=== PATIENT | male | born 1985 | race Caucasian/White ===

== ENCOUNTER 2018-01-01 14:52 | Inpatient (IN) | payer BC ==
[~2018-01-01] VITALS: Ht 175.3 cm; Wt 85.1 kg
[2018-01-01] MEDS ORDERED: vancomycin inj 1,250 MG in normal saline 250ml IV soln 250 ML IV SCH (15:00)
[2018-01-01] MEDS: vancomycin inj 1,250 MG in normal saline 250ml IV soln 250 ML IV SCH (17:00)
[2018-01-01 17:02] LABS: BASOPHILS # (AUTO) 0.1 X10'3 (0-0.2); BASOPHILS % (AUTO) 0.7 % (0-1); EOSINOPHILS # (AUTO) 0.4 X10'3 (0-0.9); EOSINOPHILS % (AUTO) 4.9 % (0-6); HEMATOCRIT 44.9 % (42.0-52.0); HEMOGLOBIN 15.8 g/dl (14.0-17.9); LYMPHOCYTES # (AUTO) 2.5 X10'3 (1.1-4.8); LYMPHOCYTES % (AUTO) 29.2 % (21-51); MEAN CORPUSCULAR HEMOGLOBIN 32.9 PG (27.0-31.0); MEAN CORPUSCULAR HGB CONC 35.1 % (33.0-36.5); MEAN CORPUSCULAR VOLUME 93.5 FL (78-98); MEAN PLATELET VOLUME 7.3 FL (7.4-10.4); MONOCYTES # (AUTO) 0.8 X10'3 (0-0.9); MONOCYTES % (AUTO) 9.6 % (2-12); NEUTROPHILS # (AUTO) 4.7 X10'3 (1.8-7.7); NEUTROPHILS % (AUTO) 55.6 % (42-75); PLATELET COUNT 341 X10'3 (140-440); RED CELL DISTRIBUTION WIDTH 12.1 % (11.5-14.5); WHITE BLOOD COUNT 8.5 X10'3 (4.5-11.0)
[2018-01-01] MEDS ORDERED: CEPH250T PO (17:04)
[2018-01-01] MEDS ORDERED: ADAL40PE SUBCUT (17:04)
[2018-01-01] MEDS ORDERED: SULF1TAB49 PO (17:04)
[2018-01-01] MEDS ORDERED: CefTRIAXone 2gm/NS 100ml IVPB 100 ML IV ONE (17:10)
[2018-01-01] MEDS ORDERED: potassium Cl 20 mEq SR tablet PO PRN ×2 (17:15)
[2018-01-01] MEDS ORDERED: ondansetron/PF 4mg/2ml inj IV PRN (17:15)
[2018-01-01] MEDS ORDERED: HYDROcodone/acetaminophen 5mg/325mg tablet PO PRN (17:15)
[2018-01-01] MEDS ORDERED: mag hydrox/Alum hydrox/simeth 30ml oral suspension PO PRN (17:15)
[2018-01-01] MEDS: K and/or MAG REPLACEMENT MC SCH (17:15)
[2018-01-01] MEDS ORDERED: magnesium Cl slow-release 64mg tablet PO PRN (17:15)
[2018-01-01] MEDS ORDERED: potassium Cl 40MEQ/NS 500ml 500 ML IV PRN ×2 (17:15)
[2018-01-01] MEDS ORDERED: magnesium 4gm in 100ml NS 100 ML IV PRN (17:15)
[2018-01-01] MEDS ORDERED: magnesium 2GM in 50ml NS 50 ML IV PRN (17:15)
[2018-01-01] MEDS ORDERED: acetaminophen 325mg tablet PO PRN ×2 (17:15)
[2018-01-01] MEDS ORDERED: magnesium hydroxide 30ml (MOM) UD suspension PO PRN (17:15)
[2018-01-01 17:17] LABS: ALANINE AMINOTRANSFERASE 61 U/L (12-78); ALBUMIN 3.6 G/DL (3.4-5.0); ALKALINE PHOSPHATASE 72 IU/L (46-116); ANION GAP 12 (8-16); ASPARTATE AMINO TRANSFERASE 24 U/L (10-37); BILIRUBIN,TOTAL 0.3 MG/DL (0.1-1.0); BLOOD UREA NITROGEN 14 MG/DL (7-18); BUN/CREATININE RATIO 11.4 (5.4-32.0); CALCIUM 8.7 MG/DL (8.5-10.1); CHLORIDE 106 MMOL/L (99-107); CREATININE 1.23 MG/DL (0.60-1.10); GLUCOSE 97 MG/DL (70-104); POTASSIUM 4.1 MMOL/L (3.5-5.1); SODIUM 141 MMOL/L (135-145); TOTAL CARBON DIOXIDE 23.2 MMOL/L (24-32); TOTAL PROTEIN 7.3 G/DL (6.4-8.2); eGFR 68 ML/MIN
[2018-01-01 18:14] LABS: INR 0.9 INR; PARTIAL THROMBOPLASTIN TIME 26 SECONDS (22-32); PROTHROMBIN TIME 9.3 SECONDS (9.0-12.0)
[2018-01-01] MEDS ORDERED: normal saline 1000ML IV soln IVB ONE (18:35)
[2018-01-01] MEDS ORDERED: iohexol 300mg/ml 100ml inj. ONE (18:39)
[2018-01-01] MEDS ORDERED: famotidine/PF 10 mg/ml inj IV ONE (20:10)
[2018-01-01] MEDS ORDERED: diphenhydrAMINE 50 mg/ml inj IV ONE (20:10)
[2018-01-01] MEDS: HYDROcodone/acetaminophen 10/325mg tab PO PRN (20:29)
[2018-01-02] MEDS: HYDROcodone/acetaminophen 10/325mg tab PO PRN ×5 (00:51→22:37)
[2018-01-02] MEDS: temazepam 15mg capsule PO PRN ×2 (00:51→22:37)
[2018-01-02] MEDS: piperacillin/tazo 3.375gm/50ml 50 ML IV SCH ×3 (00:52→19:03)
[2018-01-02] MEDS: vancomycin inj 1,250 MG in normal saline 250ml IV soln 250 ML IV SCH (01:00)
[2018-01-02] MEDS: diphenhydrAMINE 50 mg/ml inj IV PRN ×3 (04:43→20:14)
[2018-01-02 06:43] LABS: BASOPHILS # (AUTO) 0.1 X10'3 (0-0.2); BASOPHILS % (AUTO) 0.8 % (0-1); EOSINOPHILS # (AUTO) 0.5 X10'3 (0-0.9); EOSINOPHILS % (AUTO) 6.6 % (0-6); HEMATOCRIT 39.3 % (42.0-52.0); HEMOGLOBIN 13.8 g/dl (14.0-17.9); LYMPHOCYTES # (AUTO) 2.5 X10'3 (1.1-4.8); LYMPHOCYTES % (AUTO) 34.3 % (21-51); MEAN CORPUSCULAR HEMOGLOBIN 33.4 PG (27.0-31.0); MEAN CORPUSCULAR HGB CONC 35.2 % (33.0-36.5); MEAN CORPUSCULAR VOLUME 94.9 FL (78-98); MEAN PLATELET VOLUME 7.3 FL (7.4-10.4); MONOCYTES # (AUTO) 0.8 X10'3 (0-0.9); NEUTROPHILS # (AUTO) 3.4 X10'3 (1.8-7.7); NEUTROPHILS % (AUTO) 47.3 % (42-75); PLATELET COUNT 279 X10'3 (140-440); RED BLOOD COUNT 4.14 X10'6 (4.70-6.10); RED CELL DISTRIBUTION WIDTH 12.2 % (11.5-14.5); WHITE BLOOD COUNT 7.2 X10'3 (4.5-11.0)
[2018-01-02 06:55] LABS: ANION GAP 10 (8-16); BLOOD UREA NITROGEN 14 MG/DL (7-18); BUN/CREATININE RATIO 11.7 (5.4-32.0); CALCIUM 8.3 MG/DL (8.5-10.1); CHLORIDE 107 MMOL/L (99-107); GLUCOSE 85 MG/DL (70-104); MAGNESIUM 1.9 MG/DL (1.5-2.4); POTASSIUM 4.1 MMOL/L (3.5-5.1); SODIUM 141 MMOL/L (135-145); TOTAL CARBON DIOXIDE 24.1 MMOL/L (24-32); eGFR 70 ML/MIN
[2018-01-02] MEDS ORDERED: OMEP20TA23 PO (07:49)
[2018-01-02] MEDS: K and/or MAG REPLACEMENT MC SCH (08:00)
[2018-01-02] MEDS ORDERED: OMEP20CA10 PO (08:32)
[2018-01-02] MEDS ORDERED: pantoprazole 40mg Tablet.DR PO SCH (08:45)
[2018-01-02] MEDS ORDERED: methylPREDNISolone sod succ 125mg/2ml vial IV ONE (10:35)
[2018-01-02] MEDS: famotidine 20mg tablet PO SCH ×2 (11:02→19:05)
[2018-01-02] MEDS: ketorolac tromethamine 15mg/ml inj. IV PRN ×2 (11:47→19:04)
[2018-01-02] MEDS: methylPREDNISolone sod succ 125mg/2ml vial IV SCH ×2 (14:31→19:04)
[2018-01-02 16:45] VITALS: BP 143/85
[2018-01-02 19:00] VITALS: BP 135/91
[2018-01-02] MEDS: LORazepam 1 MG tablet PO PRN (19:05)
[2018-01-02] MEDS ORDERED: NABU750T2 PO (22:54)
[2018-01-03] VITALS: BP 126/79
[2018-01-03] MEDS: methylPREDNISolone sod succ 125mg/2ml vial IV SCH ×4 (01:01→14:18)
[2018-01-03] MEDS: piperacillin/tazo 3.375gm/50ml 50 ML IV SCH ×4 (01:06→23:45)
[2018-01-03] MEDS: diphenhydrAMINE 50 mg/ml inj IV PRN ×2 (02:26→08:57)
[2018-01-03] MEDS: ketorolac tromethamine 15mg/ml inj. IV PRN ×3 (02:38→22:31)
[2018-01-03] MEDS: HYDROcodone/acetaminophen 10/325mg tab PO PRN ×4 (04:06→22:31)
[2018-01-03 07:00] VITALS: BP 133/83
[2018-01-03] MEDS: famotidine 20mg tablet PO SCH ×2 (07:26→19:51)
[2018-01-03] MEDS: OMEPRAZOLE 20MG PO SCH (07:26)
[2018-01-03 07:38] LABS: BASOPHILS % (AUTO) 0.3 % (0-1); EOSINOPHILS % (AUTO) 0 % (0-6); HEMATOCRIT 41.5 % (42.0-52.0); HEMOGLOBIN 14.6 g/dl (14.0-17.9); LYMPHOCYTES # (AUTO) 1.4 X10'3 (1.1-4.8); LYMPHOCYTES % (AUTO) 9.5 % (21-51); MEAN CORPUSCULAR HEMOGLOBIN 33.1 PG (27.0-31.0); MEAN CORPUSCULAR HGB CONC 35.2 % (33.0-36.5); MEAN CORPUSCULAR VOLUME 94.1 FL (78-98); MEAN PLATELET VOLUME 7.8 FL (7.4-10.4); MONOCYTES # (AUTO) 0.2 X10'3 (0-0.9); MONOCYTES % (AUTO) 1.4 % (2-12); NEUTROPHILS # (AUTO) 13.4 X10'3 (1.8-7.7); NEUTROPHILS % (AUTO) 88.8 % (42-75); PLATELET COUNT 340 X10'3 (140-440); RED BLOOD COUNT 4.41 X10'6 (4.70-6.10); WHITE BLOOD COUNT 15.1 X10'3 (4.5-11.0)
[2018-01-03] MEDS: K and/or MAG REPLACEMENT MC SCH (07:47)
[2018-01-03 07:53] LABS: ALBUMIN 3.3 G/DL (3.4-5.0); ANION GAP 12 (8-16); BLOOD UREA NITROGEN 14 MG/DL (7-18); BUN/CREATININE RATIO 15.7 (5.4-32.0); CHLORIDE 105 MMOL/L (99-107); CREATININE 0.89 MG/DL (0.60-1.10); GLUCOSE 144 MG/DL (70-104); MAGNESIUM 2.2 MG/DL (1.5-2.4); POTASSIUM 4.4 MMOL/L (3.5-5.1); SODIUM 141 MMOL/L (135-145); TOTAL CARBON DIOXIDE 23.9 MMOL/L (24-32); eGFR > 90 ML/MIN
[2018-01-03] MEDS: LORazepam 1 MG tablet PO PRN ×3 (07:57→19:51)
[2018-01-03 11:45] VITALS: BP 142/80
[2018-01-03 18:30] VITALS: BP 150/98
[2018-01-03] MEDS: methylPREDNISolone sod succ/PF 40mg inj. IV SCH (19:51)
[2018-01-03] MEDS: lactobacillus rhamnosus 10,000 MMU CELLS/CAPSULE PO SCH (19:51)
[2018-01-03 23:57] VITALS: BP 155/102
[2018-01-04] MEDS: methylPREDNISolone sod succ/PF 40mg inj. IV SCH ×2 (02:32→08:00)
[2018-01-04] MEDS: LORazepam 1 MG tablet PO PRN (02:32)
[2018-01-04 06:29] LABS: BASOPHILS % (AUTO) 0.2 % (0-1); EOSINOPHILS # (AUTO) 0.2 X10'3 (0-0.9); EOSINOPHILS % (AUTO) 1.1 % (0-6); HEMATOCRIT 37.9 % (42.0-52.0); HEMOGLOBIN 13.6 g/dl (14.0-17.9); LYMPHOCYTES # (AUTO) 1.9 X10'3 (1.1-4.8); LYMPHOCYTES % (AUTO) 9.9 % (21-51); MEAN CORPUSCULAR HEMOGLOBIN 33.7 PG (27.0-31.0); MEAN CORPUSCULAR HGB CONC 35.9 % (33.0-36.5); MEAN CORPUSCULAR VOLUME 93.8 FL (78-98); MEAN PLATELET VOLUME 7.2 FL (7.4-10.4); MONOCYTES # (AUTO) 1.1 X10'3 (0-0.9); MONOCYTES % (AUTO) 6.1 % (2-12); NEUTROPHILS # (AUTO) 15.4 X10'3 (1.8-7.7); NEUTROPHILS % (AUTO) 82.7 % (42-75); PLATELET COUNT 339 X10'3 (140-440); RED BLOOD COUNT 4.04 X10'6 (4.70-6.10); RED CELL DISTRIBUTION WIDTH 12.5 % (11.5-14.5); WHITE BLOOD COUNT 18.7 X10'3 (4.5-11.0)
[2018-01-04 07:00] VITALS: BP 137/90
[2018-01-04 07:01] LABS: ALBUMIN 3.3 G/DL (3.4-5.0); ANION GAP 10 (8-16); BLOOD UREA NITROGEN 17 MG/DL (7-18); BUN/CREATININE RATIO 17.2 (5.4-32.0); CALCIUM 8.7 MG/DL (8.5-10.1); CHLORIDE 106 MMOL/L (99-107); CREATININE 0.99 MG/DL (0.60-1.10); GLUCOSE 127 MG/DL (70-104); MAGNESIUM 2.4 MG/DL (1.5-2.4); POTASSIUM 4.4 MMOL/L (3.5-5.1); SODIUM 141 MMOL/L (135-145); TOTAL CARBON DIOXIDE 24.8 MMOL/L (24-32); eGFR 87 ML/MIN
[2018-01-04] MEDS: lactobacillus rhamnosus 10,000 MMU CELLS/CAPSULE PO SCH (07:19)
[2018-01-04] MEDS: HYDROcodone/acetaminophen 10/325mg tab PO PRN (07:20)
[2018-01-04] MEDS: OMEPRAZOLE 20MG PO SCH (07:20)
[2018-01-04] MEDS: ketorolac tromethamine 15mg/ml inj. IV PRN (07:20)
[2018-01-04] MEDS: piperacillin/tazo 3.375gm/50ml 50 ML IV SCH (08:00)
[2018-01-04] MEDS: K and/or MAG REPLACEMENT MC SCH (08:00)
[2018-01-04] MEDS: famotidine 20mg tablet PO SCH (08:00)
== END 2018-01-04 10:35 | disposition home or self-care (01) | DRG 603 ==
LOC: ER 14:52 → ED HOLD 17:15 → EDBEDREQ 01-02 15:19 → MED 3N 01-02 17:20
PROVIDERS: ADMIT Family Medicine; ATTEND Family Medicine
PROC: B42F1ZZ Computerized Tomography (CT Scan) of Right Lower Extremity Arteries using Low Osmolar Contrast (ICD-10-PCS; principal; 2018-01-01)
DX: L03.115 Cellulitis of right lower limb (principal); N17.9 Acute kidney failure, unspecified; D89.9 Disorder involving the immune mechanism, unspecified; G25.82 Stiff-man syndrome; B35.3 Tinea pedis; S91.109A Unspecified open wound of unspecified toe(s) without damage to nail, initial encounter; X58.XXXA Exposure to other specified factors, initial encounter; M45.9 Ankylosing spondylitis of unspecified sites in spine; T36.8X5A Adverse effect of other systemic antibiotics, initial encounter; Z87.891 Personal history of nicotine dependence; Y92.89 Other specified places as the place of occurrence of the external cause; Y93.89 Activity, other specified; Y99.8 Other external cause status
CPT/HCPCS: 36415; 73660; 73701; 80048; 80053; 83605; 83735; 85025; 85610; 85651; 85730; 87040; 87070; 99285; J0696; J1200; J1885; J2543; J2920; J2930; J3370; J7030; Q9967